=== PATIENT | male | born 1990 | race Two or more races ===

== ENCOUNTER 2019-07-12 20:58 | Emergency (ER) | payer MEDICAID ==
[~2019-07-12] VITALS: Ht 175.3 cm; Wt 112.0 kg
[2019-07-12] MEDS ORDERED: MORPHINE SULFATE 4 MG/ML CPJ (NOT FOR IM USE) IV ONE (22:15)
[2019-07-13 00:55] VITALS: BP 121/69
== END 2019-07-13 01:00 | disposition home or self-care (01) ==
LOC: ER 20:58
DX: M54.5 Low back pain (principal); Z98.890 Other specified postprocedural states
CPT/HCPCS: 96374; 99283; J2270